=== PATIENT | male | born 1930 | race Caucasian/White ===

== ENCOUNTER → 2016-10-10 | Outpatient (CLI) | payer MEDICARE, OTHER ==
[~2016-10-10] MED LIST: HYZA50TA2 PO; LASI20TA PO; OMNI1SUS EACH EYE; POTA-267 PO; PROT40TA PO; RIVA15 PO; RIVA20 PO; ROSU20 PO; SUCR1TAB PO; SYNT112T PO; ZITH250T PO
[2016-10-10 13:17] LABS: AUTOMATED NEUTROPHIL # 3.2 TH/MM3 (1.8-7.7); BASOPHIL % 0.6 % (0.0-2.0); EOSINOPHIL # 0.4 TH/MM3 (0-0.4); EOSINOPHIL % 6.7 % (0.0-4.0); HEMATOCRIT 34.8 % (39.0-51.0); HEMO FLAGS DIFF FINAL; LYMPH % 23.7 % (9.0-44.0); LYMPHOCYTE # 1.3 TH/MM3 (1.0-4.8); MEAN CELL VOLUME 99.2 FL (80.0-100.0); MEAN CORPUSCULAR HEMOGLOBIN 33.5 PG (27.0-34.0); MEAN CORPUSCULAR HGB CONC 33.8 % (32.0-36.0); MONO % 8.2 % (0.0-8.0); NEUT % 60.8 % (16.0-70.0); PLATELET COUNT 181 TH/MM3 (150-450); RED BLOOD COUNT 3.51 MIL/MM3 (4.50-5.90); RED CELL DISTRIBUTION WIDTH 14.7 % (11.6-17.2); WHITE BLOOD COUNT 5.3 TH/MM3 (4.0-11.0)
[2016-10-10 13:46] LABS: ANION GAP 9 MEQ/L (5-15); AST (GOT) 29 U/L (15-37); BICARBONATE 24.5 MEQ/L (21.0-32.0); BLOOD UREA NITROGEN 28 MG/DL (7-18); CHLORIDE 111 MEQ/L (98-107); GLUCOSE,FASTING 76 MG/DL (74-99); POTASSIUM 4.1 MEQ/L (3.5-5.1); SODIUM (NA) 144 MEQ/L (136-145)
[2016-10-10 13:56] LABS: ALKALINE PHOSPHATASE 95 U/L (45-117); ALT (GPT) 31 U/L (12-78); GLOMERULAR FILTRATION RATE 55 ML/MIN (>89); HDL CHOLESTEROL 68.7 MG/DL (40.0-60.0); LDL CHOLESTEROL 56 MG/DL (0-99); TOTAL BILIRUBIN ADULT 0.3 MG/DL (0.2-1.0)
== END ==
LOC: PLAB 07:58
PROVIDERS: ATTEND Family Medicine
DX: E03.9 Hypothyroidism, unspecified (principal); D64.9 Anemia, unspecified; I10 Essential (primary) hypertension
CPT/HCPCS: 36415; 80053; 80061; 84443; 85025

== ENCOUNTER 2016-11-28 20:18 | Emergency (ER) | payer MEDICARE, OTHER ==
[~2016-11-28] VITALS: Ht 182.9 cm; Wt 91.8 kg
[2016-11-28 20:30] VITALS: BP 194/88; PULSE 63; RESP 20; TEMP 98.9; O2SAT 99
[2016-11-28] MEDS ORDERED: RANI150T PO (21:50)
[2016-11-28] MEDS ORDERED: APIX5TAB PO (21:50)
[2016-11-28] MEDS ORDERED: ROSU1TAB8 PO (21:50)
[2016-11-28] MEDS ORDERED: LEVO150T7 PO (21:50)
[2016-11-28] MEDS ORDERED: LOSA100T2 PO (21:50)
[2016-11-28] MEDS ORDERED: OCUVTAB4 PO (21:50)
[2016-11-28] MEDS ORDERED: RESP: ALBUTEROL 2.5 MG/IPRATROPIUM 0.5 MG NEB (SCH) NEB ONE (22:00)
[2016-11-28 22:22] LABS: AUTOMATED NEUTROPHIL # 3.6 TH/MM3 (1.8-7.7); BASOPHIL % 0.3 % (0.0-2.0); EOSINOPHIL # 0.2 TH/MM3 (0-0.4); EOSINOPHIL % 4.6 % (0.0-4.0); HEMATOCRIT 33.6 % (39.0-51.0); LYMPHOCYTE # 0.7 TH/MM3 (1.0-4.8); MEAN CELL VOLUME 101.3 FL (80.0-100.0); MEAN CORPUSCULAR HEMOGLOBIN 33.5 PG (27.0-34.0); MONO % 12.6 % (0.0-8.0); NEUT % 68.5 % (16.0-70.0); PLATELET COUNT 160 TH/MM3 (150-450); RED BLOOD COUNT 3.31 MIL/MM3 (4.50-5.90); WHITE BLOOD COUNT 5.1 TH/MM3 (4.0-11.0)
[2016-11-28 22:29] LABS: CHLORIDE 106 MEQ/L (98-107); POTASSIUM 3.9 MEQ/L (3.5-5.1); SODIUM (NA) 139 MEQ/L (136-145)
[2016-11-28 22:30] LABS: HEMO FLAGS DIFF FINAL
[2016-11-28 22:33] LABS: ANION GAP 6 MEQ/L (5-15); BICARBONATE 26.6 MEQ/L (21.0-32.0); BLOOD UREA NITROGEN 29 MG/DL (7-18)
[2016-11-28 22:36] LABS: ALT (GPT) 41 U/L (12-78); AST (GOT) 37 U/L (15-37); GLOMERULAR FILTRATION RATE 58 ML/MIN (>89)
[2016-11-28 22:37] LABS: TOTAL BILIRUBIN ADULT 0.4 MG/DL (0.2-1.0)
[2016-11-28 22:38] LABS: ALKALINE PHOSPHATASE 90 U/L (45-117)
--- NOTE | 2016-11-28 22:49 | RADRPT ---
EXAM DATE/TIME: 11/28/2016 22:09 [facility] COMPARISON: No previous studies available for comparison. INDICATIONS : Cough and congestion. MEDICAL HISTORY : SURGICAL HISTORY : CABG. ENCOUNTER: Initial ACUITY: 3 days PAIN SCORE: 0/10 LOCATION: Bilateral chest FINDINGS: PA and lateral views of the chest demonstrate no focal consolidation or significant effusion. Previou s median sternotomy. No pneumothorax. Degenerative changes in the spine. CONCLUSION: 1. No focal consolidation or significant effusion. Previous CABG. Randy Cagle MD on November 28, 2016 at 22:46 Board Certified Radiologist. This report was verified electronically.
[2016-11-28] MEDS ORDERED: ALBUAER3 INH (23:03)
[2016-11-28] MEDS ORDERED: ZITHTAB PO (23:03)
--- NOTE | 2016-11-28 23:03 | PD ---
HPI Chief Complaint: Cold / Flu Symptoms Time Seen by Provider: 21:52 Travel History International Travel<30 days: No Contact w/Intl Traveler<30days: No Traveled to known affect area: No History of Present Illness HPI Patient is an 86-year-old male comes in complaining of nasal congestion and cough for the past 2 or 3 days. 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 He denies any fever or chills. He denies any shortness of breath. He denies any chest pain. PFSH Past Medical History Hx Anticoagulant Therapy: Yes (ELIQUIS) Atrial Fibrillation: Yes Blood Disorders: No Heart Rhythm Problems: Yes Cancer: No Cardiac Catheterization: Yes Cardiovascular Problems: Yes (TRIPLE BYPASS 2012) High Cholesterol: Yes Chest Pain: Yes Congestive Heart Failure: Yes Cerebrovascular Accident: Yes (TIA) Coronary Artery Disease: Yes Diminished Hearing: No Endocrine: Yes Gastrointestinal Disorders: Yes GERD: Yes Genitourinary: No Hiatal Hernia: Yes Hypertension: Yes Immune Disorder: No Musculoskeletal: Yes Neurologic: No Psychiatric: No Reproductive: No Respiratory: No Immunizations Current: Yes Myocardial Infarction: Yes (X1) Thyroid Disease: Yes Tetanus Vaccination: < 5 Years Influenza Vaccination: Yes Past Surgical History Cardiac Surgery: Yes Coronary Artery Bypass Graft: Yes (2011) Eye Surgery: Yes (CATARACT SURG) Tonsillectomy: Yes Other Surgery: Yes Social History Alcohol Use: Yes (Occ.) Tobacco Use: No Substance Use: No Allergies-Medications (Allergen,Severity, Reaction): Coded Allergies: Penicillin (Verified Allergy, Severe, Hives, swelling, 11/28/16) Reported Meds & Prescriptions Reported Meds & Active Scripts Active Reported Rosuvastatin (Rosuvastatin Calcium) 20 Mg Tab 20 Mg PO DAILY Ranitidine (Ranitidine HCl) 150 Mg Tab 150 Mg PO BID Preservision Areds (Multiple Vitamins W/ Minerals) 1 Tab 1 Tab PO BID Levothyroxine (Levothyroxine Sodium) 150 Mcg Tab 150 Mcg PO DAILY Losartan-Hydrochlorothiazide 100-25 Mg Tab 1 Tab PO DAILY Eliquis (Apixaban) 5 Mg Tab 5 Mg PO BID Review of Systems Except as stated in HPI: all other systems reviewed are Neg General / Constitutional: No: Fever, Chills HENT: No: Headaches, Lightheadedness Cardiovascular: No: Chest Pain or Discomfort Respiratory: Positive: Cough Gastrointestinal: No: Nausea, Vomiting Musculoskeletal: No: Edema, Pain Skin: No Rash, No Change in Pigmentation Neurologic: No: Weakness, Dizziness Physical Exam Narrative GENERAL: Awake and alert, in no acute distress. SKIN: Focused skin assessment warm/dry. HEAD: Atraumatic. Normocephalic. EYES: Pupils equal and round. No scleral icterus. ENT: Mucous membranes pink and moist. NECK: Trachea midline. No JVD. CARDIOVASCULAR: Regular rate and rhythm. No murmur appreciated. RESPIRATORY: No accessory muscle use. Coarse breath sounds throughout both lungs with occasional wheezing. Breath sounds equal bilaterally. GASTROINTESTINAL: Abdomen soft, non-tender, nondistended. MUSCULOSKELETAL: No obvious deformities. No clubbing. No cyanosis. No edema. NEUROLOGICAL: Awake and alert. No obvious cranial nerve deficits. Motor grossly within normal limits. Normal speech. PSYCHIATRIC: Appropriate mood and affect; insight and judgment normal. Data Data Last Documented VS Vital Signs Date Time Temp Pulse Resp B/P Pulse Ox O2 Delivery O2 Flow Rate FiO2 11/28/16 21:50 18 99 Room Air 11/28/16 20:30 98.9 63 194/88 Orders Complete Blood Count With Diff (11/28/16 21:58) Comprehensive Metabolic Panel (11/28/16 21:58) Iv Access Insert/Monitor (11/28/16 21:58) Chest, Pa & Lat (11/28/16 ) Albuterol-Ipratropium Neb (Duoneb Neb) (11/28/16 22:00) Labs Laboratory Tests Test 11/28/16 22:10 White Blood Count 5.1 TH/MM3 Red Blood Count 3.31 MIL/MM3 Hemoglobin 11.1 GM/DL Hematocrit 33.6 % Mean Corpuscular Volume 101.3 FL Mean Corpuscular Hemoglobin 33.5 PG Mean Corpuscular Hemoglobin 33.0 % Concent Red Cell Distribution Width 14.0 % Platelet Count 160 TH/MM3 Mean Platelet Volume 8.0 FL Neutrophils (%) (Auto) 68.5 % Lymphocytes (%) (Auto) 14.0 % Monocytes (%) (Auto) 12.6 % Eosinophils (%) (Auto) 4.6 % Basophils (%) (Auto) 0.3 % Neutrophils # (Auto) 3.6 TH/MM3 Lymphocytes # (Auto) 0.7 TH/MM3 Monocytes # (Auto) 0.6 TH/MM3 Eosinophils # (Auto) 0.2 TH/MM3 Basophils # (Auto) 0.0 TH/MM3 CBC Comment DIFF FINAL Differential Comment Sodium Level 139 MEQ/L Potassium Level 3.9 MEQ/L Chloride Level 106 MEQ/L Carbon Dioxide Level 26.6 MEQ/L Anion Gap 6 MEQ/L Blood Urea Nitrogen 29 MG/DL Creatinine 1.20 MG/DL Estimat Glomerular Filtration 58 ML/MIN Rate Random Glucose 100 MG/DL Calcium Level 8.9 MG/DL Total Bilirubin 0.4 MG/DL Aspartate Amino Transf 37 U/L (AST/SGOT) Alanine Aminotransferase 41 U/L (ALT/SGPT) Alkaline Phosphatase 90 U/L Total Protein 7.1 GM/DL Albumin 3.8 GM/DL [facility] Medical Decision Making Medical Screen Exam Complete: Yes Emergency Medical Condition: Yes Medical Record Reviewed: Yes Differential Diagnosis Bronchitis versus pneumonia versus URI Narrative Course Patient is an 86-year-old male who comes in complaining of cough and nasal congestion. Exam shows some coarse breath sounds and occasional wheezing throughout both lungs. IV established, labs sent. Patient given a DuoNeb with improvement of his symptoms. Chest x-ray shows no acute abnormalities. She will be discharged with prescription for azithromycin as well as albuterol inhaler. He will follow-up with Dr. Álvarez. Advised to return to the ED as needed for any worsening symptoms. Diagnosis Primary Impression: Bronchitis Patient Instructions: Acute Bronchitis (ED), General Instructions Additional Instructions: Use the albuterol inhaler every 4-6 hours for cough and shortness of breath. Take all the antibiotics. Follow up with her primary care doctor. Return to the ED as needed for any worsening symptoms. Scripts Azithromycin (Zithromax Z-Florencio)250 Mg Arcn730 Mg PO DIRECTED #1 DSPK Ref 0 500 MG (2 tabs) day 1, then 1 tab days 2-5. Prov:Oliiva Seymour MD 11/28/16 Albuterol 8.5 GM Inh (Proair Hfa 8.5 GM Inh)90 Mcg/Act Aer2 Puff INH Q4-6H PRN ( SHORTNESS OF BREATH) #1 INHALER Ref 0 108 mcg/actuation Prov:Olivia Seymour MD 11/28/16 Disposition: 01 DISCHARGE HOME Condition: Stable Olivia Seymour MD Nov 28, 2016 23:03
[2016-11-28 23:14] VITALS: BP 188/88; PULSE 63; RESP 18; O2SAT 100
== END 2016-11-28 23:14 | disposition home or self-care (01) ==
LOC: PHED 20:18 → PHEFT 23:14
DX: J40 Bronchitis, not specified as acute or chronic (principal); I48.91 Unspecified atrial fibrillation; E78.00 Pure hypercholesterolemia, unspecified; I50.9 Heart failure, unspecified; I11.0 Hypertensive heart disease with heart failure; I25.10 Atherosclerotic heart disease of native coronary artery without angina pectoris; I25.2 Old myocardial infarction; Z86.73 Personal history of transient ischemic attack (TIA), and cerebral infarction without residual deficits; Z79.01 Long term (current) use of anticoagulants
CPT/HCPCS: 71020; 80053; 85025; 94664; 99284

== ENCOUNTER 2017-02-23 16:35 | Emergency (ER) | payer MEDICARE, OTHER ==
[~2017-02-23] VITALS: Ht 182.9 cm; Wt 96.0 kg
[~2017-02-23 16:35] MED LIST changes: +ALBUAER3 INH; +APIX5TAB PO; -HYZA50TA2 PO; -LASI20TA PO; +LEVO150T7 PO; +LOSA100T2 PO; +OCUVTAB4 PO; -OMNI1SUS EACH EYE; -POTA-267 PO; -PROT40TA PO; +RANI150T PO; -RIVA15 PO; -RIVA20 PO; +ROSU1TAB8 PO; -ROSU20 PO; -SUCR1TAB PO; -SYNT112T PO; -ZITH250T PO; +ZITHTAB PO
[2017-02-23 16:55] VITALS: BP 207/97; PULSE 66; RESP 16; TEMP 97.8; O2SAT 94
[2017-02-23] MEDS ORDERED: cloNIDine HCL 0.2 MG TAB PO ONE (17:00)
--- NOTE | 2017-02-23 17:04 | PD ---
HPI Chief Complaint: chest pain Time Seen by Provider: 16:44 Travel History International Travel<30 days: No Contact w/Intl Traveler<30days: No Traveled to known affect area: No History of Present Illness HPI This patient complains of chest pain. Location is right upper chest. Duration is one to 2 days. 3 days ago he fell and landed on his right shoulder. He denies shortness of breath. Pain started a full day later rather than right at the insertion of the fall. Location of pain in his right upper chest and right shoulder. He is not short of breath. No fever. Symptoms severity is mild to moderate. No alleviating factors. Has long-standing history of difficult to control blood pressure. Currently 208 systolic. PFSH Past Medical History Hx Anticoagulant Therapy: Yes (ELIQUIS) Atrial Fibrillation: Yes Blood Disorders: No Heart Rhythm Problems: Yes Cancer: No Cardiac Catheterization: Yes Cardiovascular Problems: Yes (TRIPLE BYPASS 2012) High Cholesterol: Yes Chest Pain: Yes Congestive Heart Failure: Yes Cerebrovascular Accident: Yes (TIA) Coronary Artery Disease: Yes Diminished Hearing: No Endocrine: Yes Gastrointestinal Disorders: Yes GERD: Yes Genitourinary: No Hiatal Hernia: Yes Hypertension: Yes Immune Disorder: No Musculoskeletal: Yes Neurologic: No Psychiatric: No Reproductive: No Respiratory: No Immunizations Current: Yes Myocardial Infarction: Yes (X1) Thyroid Disease: Yes Past Surgical History Cardiac Surgery: Yes Coronary Artery Bypass Graft: Yes (2011) Eye Surgery: Yes (CATARACT SURG) Tonsillectomy: Yes Other Surgery: Yes Social History Alcohol Use: Yes (Occ.) Tobacco Use: No Substance Use: No Allergies-Medications (Allergen,Severity, Reaction): Coded Allergies: penicillin G (Unverified Allergy, Severe, Hives, swelling, 12/05/16) Reported Meds & Prescriptions Reported Meds & Active Scripts Active Reported Preservision-Lutein (Multiple Vitamins W/ Minerals) 1 Cap 1 Cap PO DAILY Losartan (Losartan Potassium) 100 Mg Tab 100 Mg PO DAILY Rosuvastatin (Rosuvastatin Calcium) 20 Mg Tab 20 Mg PO DAILY Ranitidine (Ranitidine HCl) 150 Mg Tab 150 Mg PO BID Preservision Areds (Multiple Vitamins W/ Minerals) 1 Tab 1 Tab PO BID Levothyroxine (Levothyroxine Sodium) 150 Mcg Tab 150 Mcg PO DAILY Eliquis (Apixaban) 5 Mg Tab 5 Mg PO BID Review of Systems General / Constitutional: No: Fever Eyes: No: Visual changes HENT: No: Headaches Cardiovascular: Positive: Chest Pain or Discomfort, Irregular Rhythm Respiratory: No: Shortness of Breath Gastrointestinal: No: Abdominal Pain Genitourinary: No: Dysuria Musculoskeletal: Positive: Pain Skin: No Rash Neurologic: No: Weakness Psychiatric: No: Depression Endocrine: No: Polydipsia Hematologic/Lymphatic: No: Easy Bruising Physical Exam Narrative GENERAL: Well-nourished, well-developed patient in no apparent distress. SKIN: Focused skin assessment reveals no rash and nodules. Skin is Warm and dry. HEAD: Atraumatic. Normocephalic. EYES: Pupils equal and round. No scleral icterus. No injection or drainage. ENT: No nasal bleeding or discharge. Mucous membranes pink and moist. NECK: Trachea midline. No JVD. CARDIOVASCULAR: Irregularly irregular rhythm. No murmur appreciated. RESPIRATORY: No accessory muscle use. Clear to auscultation. Breath sounds equal bilaterally. GASTROINTESTINAL: Abdomen soft, non-tender, nondistended. Hepatic and splenic margins not palpable. MUSCULOSKELETAL: No obvious deformities. No clubbing. No cyanosis. No edema. Has readily reproducible right pectoral area pain with palpation. No bruising or deformity. NEUROLOGICAL: Awake and alert. No obvious cranial nerve deficits. Motor grossly within normal limits. Normal speech. PSYCHIATRIC: Appropriate mood and affect; insight and judgment normal. Data Data Last Documented VS Vital Signs Date Time Temp Pulse Resp B/P (MAP) Pulse Ox O2 Delivery O2 Flow Rate FiO2 02/23/17 17:24 70 16 188/81 (116) 98 Room Air 02/23/17 16:55 97.8 Orders Orders Clonidine (Catapres) (02/23/17 17:00) Chest, Single Ap (02/23/17 ) Shoulder, Complete (>2vws) (02/23/17 ) [facility] Medical Decision Making Medical Screen Exam Complete: Yes Emergency Medical Condition: Yes Medical Record Reviewed: Yes Differential Diagnosis Differential diagnosis includes VA, angina, pericarditis, pleurisy, GERD, anxiety. Narrative Course I have reviewed the patient's electronic medical record. I reviewed the EKG which reveals A. fib which is chronic per patient Extended cardiac monitoring reveals A. fib but rate controlled in the 70s I reviewed his chest x-ray which shows cardiomegaly without fracture I reviewed his right shoulder x-rays suggest some chronic soft tissue change but no fracture or dislocation I gave him a dose of clonidine for accelerated hypertension of 208 systolic Case reviewed with patient and family members and all questions answered. Recommend he follow-up with his primary care physician and track his blood pressure daily. Repeat is 181 systolic Diagnosis Primary Impression: Musculoskeletal chest pain Additional Impressions: Accelerated hypertension Atrial fibrillation Qualified Codes: I48.2 - Chronic atrial fibrillation Additional Instructions: The patient was advised to follow up with their physician and return if they worsen. Check and record blood pressure daily Med/Other Pt SpecificInfo: Other Disposition: 01 DISCHARGE HOME Condition: Stable Joseph Watkins MD Feb 23, 2017 17:04
--- NOTE | 2017-02-23 17:21 | RADRPT ---
EXAM DATE/TIME: 02/23/2017 17:04 [facility] COMPARISON: No previous studies available for comparison. INDICATIONS : Chest pain post fall today MEDICAL HISTORY : None. SURGICAL HISTORY : CABG. ENCOUNTER: Initial ACUITY: 1 day PAIN SCORE: 5/10 LOCATION: Right chest FINDINGS: The lungs are clear. The heart is minimally enlarged. Sternal wires previous bypass are noted. The pulmonary vascularity is normal. There is no evidence for infiltrate or failure. The portion of the bony skeleton visualized is unremarkable. CONCLUSION: Compensated cardiomegaly otherwise negative Tobias Winters MD FACR on February 23, 2017 at 17:19 Board Certified Radiologist. This report was verified electronically.
--- NOTE | 2017-02-23 17:22 | RADRPT ---
EXAM DATE/TIME: 02/23/2017 17:04 [facility] COMPARISON: No previous studies available for comparison. INDICATIONS : Right shoulder pain post fall today MEDICAL HISTORY : None. SURGICAL HISTORY : None. ENCOUNTER: Initial ACUITY: 1 day PAIN SCORE: 8/10 LOCATION: Right entire shoulder FINDINGS: Degenerative changes and findings suggestive of chronic rotator cuff tear. Fractures are appreciated . Lung apex is clear. CONCLUSION: Degenerative changes. Chronic rotator cuff tear. MRI may be of benefit. Tobias Winters MD FACR on February 23, 2017 at 17:20 Board Certified Radiologist. This report was verified electronically.
[2017-02-23] MEDS ORDERED: PRESCAP6 PO (17:23)
[2017-02-23] MEDS ORDERED: LOSA100T PO (17:23)
[2017-02-23 17:24] VITALS: BP 188/81; PULSE 70; RESP 16; O2SAT 98
--- NOTE | 2017-02-25 12:39 | EKG ---
Date Performed: 02/23/2017 Time Performed: 16:39:03 PTAGE: 86 years EKG: ATRIAL FIBRILLATION WITH ABERRANT CONDUCTION OR VENTRICULAR PREMATURE COMPLEXES NONSPECIFIC T-WAVE ABNORMALITY ABNORMAL RHYTHM ECG INTERPRETATION BASED ON A DEFAULT AGE OF 40 YEARS PREVIOUS TRACING : 03/08/2014 06.42 Compared to prior tracing no significant change DOCTOR: Eddie Ortiz Interpretating Date/Time 02/25/2017 12:34:26
== END 2017-02-23 18:06 | disposition home or self-care (01) ==
LOC: PHED 16:35
DX: R07.89 Other chest pain (principal); I48.2 Chronic atrial fibrillation; I11.0 Hypertensive heart disease with heart failure; I50.9 Heart failure, unspecified; I25.10 Atherosclerotic heart disease of native coronary artery without angina pectoris; E78.00 Pure hypercholesterolemia, unspecified; Z79.01 Long term (current) use of anticoagulants
CPT/HCPCS: 71010; 73030; 93005; 99284

== ENCOUNTER → 2017-04-04 | Outpatient (CLI) | payer MEDICARE, OTHER ==
[~2017-04-04] MED LIST changes: -ALBUAER3 INH; +LOSA100T PO; -LOSA100T2 PO; +PRESCAP6 PO; -ZITHTAB PO
[2017-04-04 10:27] LABS: ANION GAP 6 MEQ/L (5-15); AST (GOT) 23 U/L (15-37); BICARBONATE 28.2 MEQ/L (21.0-32.0); BLOOD UREA NITROGEN 22 MG/DL (7-18); CHLORIDE 106 MEQ/L (98-107); GLOMERULAR FILTRATION RATE 50 ML/MIN (>89); GLUCOSE,FASTING 102 MG/DL (74-99); POTASSIUM 3.8 MEQ/L (3.5-5.1); SODIUM (NA) 140 MEQ/L (136-145)
[2017-04-04 10:29] LABS: ALT (GPT) 27 U/L (12-78)
[2017-04-04 10:39] LABS: ALKALINE PHOSPHATASE 122 U/L (45-117); HDL CHOLESTEROL 73.9 MG/DL (40.0-60.0); LDL CHOLESTEROL 48 MG/DL (0-99); LDL CHOLESTEROL DIRECT 58 MG/DL (0-99); TOTAL BILIRUBIN ADULT 0.3 MG/DL (0.2-1.0)
== END ==
LOC: PLAB 06:48
PROVIDERS: ATTEND Family Medicine
DX: I12.9 Hypertensive chronic kidney disease with stage 1 through stage 4 chronic kidney disease, or unspecified chronic kidney disease (principal); N18.3 Chronic kidney disease, stage 3 (moderate); E78.5 Hyperlipidemia, unspecified; E03.9 Hypothyroidism, unspecified
CPT/HCPCS: 36415; 80053; 80061; 82306; 82570; 83721; 83970; 84156; 84443

== ENCOUNTER → 2017-05-30 | Outpatient (CLI) | payer MEDICARE, OTHER ==
[2017-05-30 13:45] LABS: BICARBONATE 22.4 MEQ/L (21.0-32.0); CALCIUM 9.5 MG/DL (8.5-10.1); CREATININE 1.33 MG/DL (0.60-1.30)
== END ==
LOC: PLAB 10:21
PROVIDERS: ATTEND Family Medicine
DX: E55.9 Vitamin D deficiency, unspecified (principal); N18.3 Chronic kidney disease, stage 3 (moderate); R94.6 Abnormal results of thyroid function studies; E03.9 Hypothyroidism, unspecified
CPT/HCPCS: 36415; 80048; 82306; 84443

== ENCOUNTER → 2017-06-06 | Outpatient (CLI) | payer MEDICARE, OTHER ==
[2017-06-06 09:56] LABS: BICARBONATE 25.5 MEQ/L (21.0-32.0); CALCIUM 9.1 MG/DL (8.5-10.1); CREATININE 1.56 MG/DL (0.60-1.30); MAGNESIUM 2.4 MG/DL (1.5-2.5)
== END ==
LOC: PLAB 07:45
PROVIDERS: ATTEND Family Medicine
DX: E87.6 Hypokalemia (principal)
CPT/HCPCS: 36415; 80048; 83735

== ENCOUNTER → 2017-06-28 | Outpatient (CLI) | payer MEDICARE, OTHER ==
[2017-06-28 13:29] LABS: FOLATE 12.3 NG/ML (3.1-17.5)
== END ==
LOC: PLAB 10:18
PROVIDERS: ATTEND Psychiatry & Neurology Neurology
DX: R41.3 Other amnesia (principal)
CPT/HCPCS: 36415; 82607; 82746

== ENCOUNTER 2017-07-05 07:47 | Emergency (ER) | payer MEDICARE, OTHER ==
[~2017-07-05] VITALS: Ht 182.9 cm; Wt 95.0 kg
[2017-07-05 07:50] VITALS: BP 182/98; PULSE 80; RESP 16; TEMP 97.6; O2SAT 100
[2017-07-05] MEDS ORDERED: CHOL5000 PO (08:08)
[2017-07-05] MEDS ORDERED: LOSA100T2 PO (08:08)
--- NOTE | 2017-07-05 08:33 | PD ---
HPI Chief Complaint: Laceration/Skin Injury Time Seen by Provider: 08:22 Travel History International Travel<30 days: No Contact w/Intl Traveler<30days: No Traveled to known affect area: No History of Present Illness HPI The patient is a 86-year-old male who presents to the emergency department for abrasions to the right forearm. The patient states he was working in the yard when he obtained an abrasion to the right forearm. He does state it was bleeding, did resolve with pressure. He was concerned because he is on the anticoagulant, Eliquis. The patient states his last tetanus shot was within the last 5 years. He denies any difficulty using the upper or lower extremity. He denies any numbness or tingling of the right upper extremity. He does note a history of fragile thin skin. Symptoms are mild. PFSH Past Medical History Hx Anticoagulant Therapy: Yes Atrial Fibrillation: Yes Blood Disorders: No Heart Rhythm Problems: Yes Cancer: No Cardiac Catheterization: Yes Cardiovascular Problems: Yes (htn on meds, 3 vessel bypass) High Cholesterol: Yes Chest Pain: Yes Congestive Heart Failure: Yes Cerebrovascular Accident: Yes (TIA) Coronary Artery Disease: Yes Diminished Hearing: No Endocrine: Yes Gastrointestinal Disorders: Yes GERD: Yes Genitourinary: No Hiatal Hernia: Yes Hypertension: Yes Immune Disorder: No Musculoskeletal: Yes Neurologic: No Psychiatric: No Reproductive: No Respiratory: No Immunizations Current: Yes Myocardial Infarction: Yes (X1) Thyroid Disease: Yes Past Surgical History Cardiac Surgery: Yes Coronary Artery Bypass Graft: Yes (20122- vessels) Eye Surgery: Yes (CATARACT SURG) Tonsillectomy: Yes Other Surgery: Yes Social History Alcohol Use: Yes (Occ. mix drinks) Tobacco Use: No Substance Use: No Allergies-Medications (Allergen,Severity, Reaction): Coded Allergies: penicillin G (Unverified Allergy, Severe, Hives, swelling, 07/05/17) Reported Meds & Prescriptions Reported Meds & Active Scripts Active Reported Vitamin D3 (Cholecalciferol) 5,000 Unit Cap 5,000 Units PO DAILY Losartan-Hydrochlorothiazide 100-25 Mg Tab 1 Tab PO DAILY Rosuvastatin (Rosuvastatin Calcium) 20 Mg Tab 20 Mg PO DAILY Ranitidine (Ranitidine HCl) 150 Mg Tab 150 Mg PO BID Preservision Areds (Multiple Vitamins W/ Minerals) 1 Tab 1 Tab PO BID Levothyroxine (Levothyroxine Sodium) 150 Mcg Tab 175 Mcg PO DAILY Eliquis (Apixaban) 5 Mg Tab 5 Mg PO BID Review of Systems Except as stated in HPI: all other systems reviewed are Neg Musculoskeletal: No: Weakness, Pain Skin: Positive Other (As noted in the history of present illness) Neurologic: No: Paresthesia, Sensory Disturbance Physical Exam Narrative GENERAL: Awake, alert, pleasant 86-year-old male who appears his stated age and is in no acute respiratory distress. SKIN: Focused skin assessment warm/dry. Patient has a skin tear to the right forearm on the extensor surface, mid forearm, that is 4 cm x 2.5 cm. Small amount of capillary bleeding. Small abrasion of the proximal extensor surface of the right forearm which is 2 cm x 1.5 cm with no bleeding. HEAD: Atraumatic. Normocephalic. MUSCULOSKELETAL: No obvious deformities. No clubbing. No cyanosis. No edema. NEUROLOGICAL: Awake and alert. No obvious cranial nerve deficits. Motor grossly within normal limits. Normal speech. PSYCHIATRIC: Appropriate mood and affect; insight and judgment normal. Data Data Last Documented VS Vital Signs Date Time Temp Pulse Resp B/P (MAP) Pulse Ox O2 Delivery O2 Flow Rate FiO2 07/05/17 07:50 97.6 80 16 182/98 (126) 100 MDM Medical Decision Making Medical Screen Exam Complete: Yes Emergency Medical Condition: Yes Medical Record Reviewed: Yes Differential Diagnosis Differential diagnosis includes skin tear, abrasion, laceration, coagulopathy, contusion, hematoma. Narrative Course The abrasions to the right forearm were cleaned with sterile saline, Polysporin was applied and a dry pressure dressing. The patient states his tetanus shot is up-to-date. He is advised to apply Polysporin twice a day after the dressing is removed in 2 days. If bleeding resumes, to hold pressure and monitor. If bleeding persists, return to the emergency department. Follow-up with his primary physician. Diagnosis Primary Impression: Skin tear of right forearm without complication Qualified Codes: S51.811A - Laceration without foreign body of right forearm, initial encounter Patient Instructions: General Instructions Additional Instructions: Keep dressing in place for 36-48 hours. Upon removal, dampened dressing prior to removing. Polysporin twice a day. If bleeding resumes, hold pressure, if bleeding persists return. Follow-up with your primary physician. Med/Other Pt SpecificInfo: No Change to Meds Disposition: 01 DISCHARGE HOME Condition: Stable Carlos Nicholas MD Jul 05, 2017 08:33
== END 2017-07-05 08:41 | disposition home or self-care (01) ==
LOC: PHED 07:47
DX: S51.811A Laceration without foreign body of right forearm, initial encounter (principal); I48.91 Unspecified atrial fibrillation; I10 Essential (primary) hypertension; X58.XXXA Exposure to other specified factors, initial encounter; Y93.H2 Activity, gardening and landscaping; Z79.01 Long term (current) use of anticoagulants
CPT/HCPCS: 99282

== ENCOUNTER → 2017-08-27 | Outpatient (CLI) | payer MEDICARE, OTHER ==
[2017-08-27 10:18] LABS: AUTOMATED NEUTROPHIL # 3.7 TH/MM3 (1.8-7.7); BASOPHIL % 0.3 % (0.0-2.0); EOSINOPHIL # 0.3 TH/MM3 (0-0.4); EOSINOPHIL % 5.6 % (0.0-4.0); HEMATOCRIT 36.5 % (39.0-51.0); HEMO FLAGS DIFF FINAL; HEMOGLOBIN 12.4 GM/DL (13.0-17.0); LYMPH % 22.3 % (9.0-44.0); LYMPHOCYTE # 1.3 TH/MM3 (1.0-4.8); MEAN CELL VOLUME 98.5 FL (80.0-100.0); MEAN CORPUSCULAR HEMOGLOBIN 33.4 PG (27.0-34.0); MEAN CORPUSCULAR HGB CONC 33.9 % (32.0-36.0); MEAN PLATELET VOLUME 8.4 FL (7.0-11.0); MONO % 8.2 % (0.0-8.0); MONOCYTE # 0.5 TH/MM3 (0-0.9); NEUT % 63.6 % (16.0-70.0); PLATELET COUNT 198 TH/MM3 (150-450); RED CELL DISTRIBUTION WIDTH 13.9 % (11.6-17.2); WHITE BLOOD COUNT 5.8 TH/MM3 (4.0-11.0)
[2017-08-27 10:28] LABS: ALBUMIN 3.6 GM/DL (3.4-5.0); ANION GAP 9 MEQ/L (5-15); AST (GOT) 24 U/L (15-37); BICARBONATE 26.2 MEQ/L (21.0-32.0); BILIRUBIN, URINE NEG (NEG); BLOOD UREA NITROGEN 22 MG/DL (7-18); BLOOD, URINE NEG (NEG); CALCIUM 8.9 MG/DL (8.5-10.1); CHLORIDE 108 MEQ/L (98-107); CREATININE 1.32 MG/DL (0.60-1.30); GLOMERULAR FILTRATION RATE 52 ML/MIN (>89); GLUCOSE,FASTING 98 MG/DL (74-99); GLUCOSE,URINE NEG (NEG); KETONE, URINE NEG (NEG); NITRITE,URINE NEG (NEG); POTASSIUM 4.1 MEQ/L (3.5-5.1); SODIUM (NA) 143 MEQ/L (136-145); URINE COLOR LIGHT-YELLOW (YELLW/STRAW); URINE LEUKOCYTE ESTERASE NEG (NEG)
[2017-08-27 10:29] LABS: CHOLESTEROL 123 MG/DL (120-200)
[2017-08-27 10:39] LABS: ALKALINE PHOSPHATASE 102 U/L (45-117); ALT (GPT) 26 U/L (12-78); HDL CHOLESTEROL 61.3 MG/DL (40.0-60.0); LDL CHOLESTEROL 54 MG/DL (0-99); LDL CHOLESTEROL DIRECT 61 MG/DL (0-99); TOTAL BILIRUBIN ADULT 0.4 MG/DL (0.2-1.0); TOTAL PROTEIN 7.1 GM/DL (6.4-8.2); TRIGLYCERIDES 40 MG/DL (42-150)
[2017-08-27 10:39] LABS: PARATHYROID HORMONE INTACT 57.2 PG/ML (12.4-76.8)
== END ==
LOC: PLAB 07:23
DX: E78.5 Hyperlipidemia, unspecified (principal); E03.9 Hypothyroidism, unspecified; N18.3 Chronic kidney disease, stage 3 (moderate); D63.1 Anemia in chronic kidney disease
CPT/HCPCS: 36415; 80053; 80061; 81001; 82306; 82570; 83721; 83970; 84156; 84443; 85025